=== PATIENT | female | born 1990 | race Caucasian/White ===

== ENCOUNTER 2019-06-10 05:25 | Inpatient (IN) | payer BC ==
[2019-06-10] MEDS ORDERED: Sodium Chloride 0.9% 10 ML SDV IV PRN (05:42)
[2019-06-10] MEDS ORDERED: ceFAZolin 2 GM in Premix Bag 1 BAG IV ONE (05:42)
[2019-06-10] MEDS ORDERED: Sodium Chloride 0.9% 2.5 ML Syringe FLUSH PRN (05:42)
[2019-06-10] MEDS ORDERED: Sodium Chloride 0.9% 10 ML Syringe FLUSH PRN (05:42)
[2019-06-10] MEDS: Lactated Ringers 1,000 ML IV SCH ×4 (06:04→17:39)
[2019-06-10] MEDS ORDERED: Morphine PF 10 MG/10 ML SDV ONE (07:23)
--- NOTE | 2019-06-10 07:25 | PCM.PREANE ---
Preanesthetic Assessment - Anesthesia/Transfusion/Family Hx Anesthesia History: Prior Anesthesia Without Reaction Family History of Anesthesia Reaction: No Transfusion History: No Prior Transfusion(s) Intubation History: Unknown - Review of Systems General: No Symptoms Pulmonary: No Symptoms Cardiovascular: No Symptoms Gastrointestinal: No Symptoms Neurological: No Symptoms Other: Reports: None - Physical Assessment Height: 5 ft 4 in Weight: 81.647 kg ASA Class: 2 Airway Class: Mallampati = 1 Dentition: Reports: Normal Dentition (lower retainer) Thyro-Mental Finger Breadths: 3 Mouth Opening Finger Breadths: 3 ROM/Head Extension: Full Lungs: Clear to Auscultation, Normal Respiratory Effort Cardiovascular: Regular Rate, Regular Rhythm - Lab Values: Laboratory Last Values WBC 7.16 K/uL (4.0-11.0) 06/10/19 05:56 RBC 3.78 M/uL (4.30-5.90) L 06/10/19 05:56 Hgb 11.5 g/dL (12.0-16.0) L 06/10/19 05:56 Hct 34.6 % (36.0-46.0) L 06/10/19 05:56 MCV 91.5 fL (80.0-98.0) 06/10/19 05:56 MCH 30.4 pg (27.0-32.0) 06/10/19 05:56 MCHC 33.2 g/dL (31.0-37.0) 06/10/19 05:56 RDW Std Deviation 46.2 fl (28.0-62.0) 06/10/19 05:56 RDW Coeff of Sharri 14 % (11.0-15.0) 06/10/19 05:56 Plt Count 216 K/uL (150-400) 06/10/19 05:56 MPV 9.50 fL (7.40-12.00) 06/10/19 05:56 Nucleated RBC % 0.0 /100WBC 06/10/19 05:56 Nucleated RBCs # 0 K/uL 06/10/19 05:56 Blood Type B NEGATIVE 06/10/19 05:56 Antibody Screen NEGATIVE 06/10/19 05:56 - Allergies Allergies/Adverse Reactions: Allergies Allergy/AdvReac Type Severity Reaction Status Date / Time No Known Allergies Allergy Verified 06/06/19 11:07 - Blood Blood Available: No - Anesthesia Plan Pre-Op Medication Ordered: None - Acknowledgements Anesthesia Type Planned: Spinal (general anesthesia back-up plan) Pt an Appropriate Candidate for the Planned Anesthesia: Yes Alternatives and Risks of Anesthesia Discussed w Pt/Guardian: Yes Pt/Guardian Understands and Agrees with Anesthesia Plan: Yes PreAnesthesia Questionnaire HEENT History: Reports: Other (See Below) Other HEENT History: has permanent lower dental retainer Gastrointestinal History: Reports: Other (See Below) Other Gastrointestinal History: some heartburn during [employer] History: Reports: Other OB/BYN History: hx of fx tailbone during last vaginal delivery Musculoskeletal History: Reports: Other (See Below) Other Musculoskeletal History: fracture of coccyx Endocrine/Metabolic History: Reports: Obesity/BMI 30+ Other Endocrine/Metabolic History: hypoglycemia Hematologic History: Reports: Iron Deficiency - Past Surgical History Head Surgeries/Procedures: Reports: None HEENT Surgical History: Reports: Oral Surgery Other HEENT Surgeries/Procedures: removal of wisdom teeth and gum graft Musculoskeletal Surgical History: Reports: None - SUBSTANCE USE Smoking Status *Q: Never Smoker Recreational Drug Use History: No - HOME MEDS Home Medications: Home Meds PNV95/Ferrous Fumarate/FA [ Multivitamins] 1 tab PO DAILY 09/12/14 [ History] Docusate Sodium [Colace] 100 mg PO DAILY 06/06/19 [History] Iron 65 mg PO DAILY 06/06/19 [History] - CURRENT (IN HOUSE) MEDS Current Meds: Current Medications Citric Acid/Sodium Citrate (Bicitra Solution) 30 ml PO ONETIME ONE Stop: 06/10/19 08:01 Lactated Ringer's (Ringers, Lactated) 1,000 mls @ 500 mls/hr IV BOLUS [facility]IANELA Last Admin: 06/10/19 07:04 Dose: 999 mls/hr Oxytocin/Sodium Chloride (Oxytocin 30 Unit/500 Ml-Ns) 30 unit in 500 mls @ 250 mls/hr IV TITRATE [facility]A Sodium Chloride (Saline Flush) 10 ml FLUSH ASDIRECTED PRN PRN Reason: Keep Vein Open Sodium Chloride (Saline Flush) 2.5 ml FLUSH ASDIRECTED PRN PRN Reason: Keep Vein Open Sodium Chloride (Normal Saline) 10 ml IV ASDIRECTED PRN PRN Reason: IV Use Discontinued Medications Cefazolin Sodium/Dextrose 2 gm (/ Premix) 50 mls @ 100 mls/hr IV ONETIME ONE Stop: 06/10/19 06:11
[2019-06-10] MEDS ORDERED: Octyl 2-Cyanoacrylate 1 Tube ONE (07:50)
[2019-06-10] MEDS ORDERED: ceFAZolin/Dextrose,Iso-Osmotic 2 GM/50 ML Duplex Bag IV ONE (07:52)
[2019-06-10] MEDS ORDERED: Citric Acid/Sodium Citrate Solution 30 ML Cup PO ONE (08:00)
[2019-06-10] MEDS ORDERED: Octyl 2-Cyanoacrylate 1 Tube TOP ONE (08:00)
[2019-06-10] MEDS ORDERED: Oxytocin/0.9 % Sodium Chloride 30 UNIT/500 ML BAG IV SCH (08:00)
[2019-06-10] MEDS ORDERED: ePHEDrine 50 MG/ML SDV ONE (08:05)
[2019-06-10] MEDS ORDERED: Methylergonovine 0.2 MG/1 ML Amp IM PRN (08:48)
[2019-06-10] MEDS ORDERED: Ondansetron 4 MG/2 ML SDV IVPUSH PRN ×2 (08:48→09:15)
[2019-06-10] MEDS ORDERED: Lanolin 100% Cream 7 GM Tube TOP PRN (08:48)
[2019-06-10] MEDS ORDERED: Oxytocin 10 Units/1 ML SDV IM PRN (08:48)
[2019-06-10] MEDS ORDERED: Tranexamic Acid 1,000 MG in Sodium Chloride 0.9% 100 ML IV PRN (08:48)
[2019-06-10] MEDS ORDERED: diphenhydrAMINE 50 MG/ML SDV IVPUSH PRN ×2 (08:48→09:15)
[2019-06-10] MEDS ORDERED: Misoprostol 200 MCG Tab RECTAL PRN (08:48)
[2019-06-10] MEDS ORDERED: Acetaminophen/oxyCODONE 325-5 MG Tab PO PRN ×2 (08:48→09:15)
[2019-06-10] MEDS ORDERED: Bisacodyl 10 MG Supp RECTAL PRN (08:48)
--- NOTE | 2019-06-10 08:48 | PCM.OPNOTE ---
- General Post-Op/Procedure Note Date of Surgery/Procedure: 06/10/19 Operative Procedure(s): primary low transverse Findings: LIveborn female 11/08 single nuchal cord, weight pending, normal pelvis Pre Op Diagnosis: 39 weeks, previous pelvic fracture Post-Op Diagnosis: Same Anesthesia Technique: Spinal Primary Surgeon: Britney Silva Secondary Surgeon: Osiris Rivera Anesthesia Provider: Cara Durham Pathology: placenta for disposal (no path) Fluid Replacement, Intraop: 2,700 Output, Urine Amount: 150 EBL in mLs: 500 Complications: None Known Condition: Good
[2019-06-10] MEDS ORDERED: Oxytocin/Lactated Ringers 30 UNIT/500 ML BAG IV SCH (09:00)
[2019-06-10] MEDS ORDERED: fentaNYL 100 MCG/2 ML SDV IVPUSH PRN (09:15)
[2019-06-10] MEDS ORDERED: Nalbuphine 10 MG/1 ML Vial IVPUSH PRN (09:15)
[2019-06-10] MEDS ORDERED: Naloxone 0.4 MG/ML Syringe IVPUSH PRN (09:15)
[2019-06-10] MEDS: Ketorolac 30 MG/ML SDV IVPUSH SCH ×3 (09:46→21:14)
--- NOTE | 2019-06-10 10:09 | PCM.POSTAN ---
POST ANESTHESIA ASSESSMENT - MENTAL STATUS Mental Status: Alert, Oriented - RESPIRATORY Respiratory Status: Respiratory Rate WNL, Airway Patent, O2 Saturation Stable - CARDIOVASCULAR CV Status: Pulse Rate WNL, Blood Pressure Stable - GASTROINTESTINAL GI Status: No Symptoms - PAIN Pain Score: 1 - POST OP HYDRATION Hydration Status: Adequate & Stable - OBSERVATIONS Free Text/Narrative:: No anesthesia problems
[2019-06-10] MEDS: Docusate Sodium 100 MG Cap PO SCH ×2 (10:43→21:15)
--- NOTE | 2019-06-10 13:50 | OR ---
SURGEON: Britney Silva M.D. DATE OF PROCEDURE: 06/10/2019 PREOPERATIVE DIAGNOSES: A 39-week intrauterine , prior pelvic fracture. POSTOPERATIVE DIAGNOSES: A 39-week intrauterine , prior pelvic fracture. PROCEDURE: Primary low transverse section. PRIMARY SURGEON: Britney Silva MD HIGH DENSITY PRESS OPERATOR: first marce Patten, certified. ANESTHESIA: Spinal ESTIMATED BLOOD LOSS: 500 mL. FLUIDS: 2700 mL of crystalloid. FINDINGS: Liveborn female. score of 9 and 9. Weight is pending at the time of dictation. COMPLICATIONS: None known. DISPOSITION: Mother and baby are in Recovery in good condition. BRIEF HISTORY: This is a 29-year-old female, G4, P3. She presents at 39 weeks' gestation with an estimated weight of 4000 g, having had a prior coccyx fracture with a similar sized baby. She has had smaller babies, 7 pounds and 5 pounds, without difficulty. However, anticipating this to be a similar-sized baby to the one that she had the pelvic fracture with. She desires to proceed with a primary low transverse section with risks discussed including bleeding; infection; injury to bowel, bladder, blood vessels, ureters, or other organs; risk of thromboembolic event; and risk of anesthesia. Understanding all these risks, she does desire to proceed. DESCRIPTION OF PROCEDURE: With the patient in the left tilt position, under adequate spinal analgesia, the abdomen was prepped with chlorhexidine and draped in the usual fashion for abdominal surgery. SCDs were in place. Fletcher catheter had been placed. An appropriate time-out was held. She received 2 g of Ancef IV. After documentation of adequate analgesia, a transverse curvilinear incision was made 2 cm cephalad from the pubic symphysis, carried through the subcutaneous tissue to the fascia, which was scored transversely in the midline. The fascial incision was extended laterally using curved Rivera scissors. The fascia was elevated from the underlying rectus muscle and using sharp and blunt dissection. The rectus muscles were bluntly in the midline. A finger was used to enter the peritoneal cavity and the incision was extended using sharp and blunt dissection. The Chente O retractor was placed. The visceroperitoneum over the lower uterine segment was incised to develop an adequate bladder flap. A transverse curvilinear incision was made over the lower uterine segment and a finger was used to enter the amniotic cavity, clear fluid was noted. The incision was extended with cephalad-caudad traction on the incision. The head was delivered via the uterine incision. The was bulb suctioned by nose and mouth. Nuchal cord was reduced. The infant's shoulders and body were delivered without any difficulty. The infant was dried and bulb suctioned, and after 1 minute, the cord was doubly clamped and cut. The infant was handed to the nurse in attendance at delivery. The infant was a liveborn female. score of 9 and 9. Weight is pending at the time of dictation. Cord blood was collected for cord ABGs as well as routine cord blood sampling. Pitocin was initiated after delivery of the to assist with delivery of the placenta, which was delivered by manual extraction. The uterus was cleaned with a dry laparotomy tape. The cervix was opened with ring forceps. The uterine incision was closed with a running lock suture of 0 Polysorb followed by an imbricating layer of 0 Polysorb. Posterior cul-de-sac and pericolic gutters were cleaned and irrigated. Tubes and ovaries were inspected and appeared normal. The uterine incision was carefully inspected and was completely hemostatic. The Chente O retractor was removed. The rectus muscle and peritoneum were loosely approximated in the midline using running mattress suture of 0 Polysorb. The posterior aspect of the fascia was inspected for hemostasis, and after complete hemostasis was verified, the fascia was closed with a running suture of 0 Polysorb. Subcutaneous tissue was irrigated, any areas of bleeding that were noted were cauterized. The deep subcutaneous tissue was closed with a running suture of 3-0 plain and the skin was closed with running subcuticular suture of 3-0 Monocryl followed by Dermabond. Final sponge, needle, and instrument counts were reported as correct. There were no known complications. Mother and baby are in Recovery in good condition. ANA / PALAK /[id number] MTDD
[2019-06-11] MEDS: Ketorolac 30 MG/ML SDV IVPUSH SCH ×2 (03:08→09:14)
[2019-06-11] MEDS: Docusate Sodium 100 MG Cap PO SCH (09:14)
--- NOTE | 2019-06-11 09:33 | PCM.PNPP ---
- General Info Date of Service: 06/11/19 Functional Status: Reports: Pain Controlled, Tolerating Diet, Ambulating, Urinating - Review of Systems General: Reports: No Symptoms HEENT: Reports: No Symptoms Pulmonary: Reports: No Symptoms Cardiovascular: Reports: No Symptoms Gastrointestinal: Reports: No Symptoms Genitourinary: Reports: No Symptoms Musculoskeletal: Reports: No Symptoms Skin: Reports: No Symptoms Neurological: Reports: No Symptoms Psychiatric: Reports: No Symptoms - General Info Date of Service: 06/11/19 - Patient Data Vital Signs - Most Recent: Last Vital Signs Temp 36.3 C 06/11/19 04:27 Pulse 87 06/11/19 07:00 Resp 17 06/11/19 07:00 BP 90/51 L 06/11/19 04:27 Pulse Ox 99 06/11/19 07:00 Weight - Most Recent: 81.647 kg I&O - Last 24 Hours: Intake & Output 06/10/19 06/11/19 06/11/19 22:59 06:59 14:59 Output Total 1000 1200 Balance -1000 -1200 Lab Results - Last 24 Hours: Laboratory Results - last 24 hr 06/11/19 Range/Units 05:23 Hgb 8.7 L (12.0-16.0) g/dL Hct 27.1 L (36.0-46.0) % Med Orders - Current: Current Medications Bisacodyl (Dulcolax) 10 mg RECTAL ONETIME PRN PRN Reason: Constipation Docusate Sodium (Colace) 100 mg PO BID [facility] Last Admin: 06/11/19 09:14 Dose: 100 mg Emollient Ointment (Lansinoh Hpa) 0 gm TOP ASDIRECTED PRN PRN Reason: Sore Nipples Fentanyl (Sublimaze) 50 mcg IVPUSH Q1H PRN PRN Reason: Pain (severe 7-10) Lactated Ringer's (Ringers, Lactated) 1,000 mls @ 500 mls/hr IV BOLUS [facility] Last Admin: 06/10/19 07:04 Dose: 999 mls/hr Oxytocin/Sodium Chloride (Oxytocin 30 Unit/500 Ml-Ns) 30 unit in 500 mls @ 250 mls/hr IV TITRATE [facility] Tranexamic Acid 1,000 mg/ (Sodium Chloride) 110 mls @ 660 mls/hr IV ONETIME PRN PRN Reason: Bleeding Lactated Ringer's (Ringers, Lactated) 1,000 mls @ 125 mls/hr IV ASDIRECTED [facility]ELA Last Admin: 06/10/19 17:39 Dose: 125 mls/hr Oxytocin/Lactated Ringer's (Pitocin In Lr 30 Units/500 Ml) 30 unit in 500 mls @ 999 mls/hr IV TITRATE MARIANELA; Protocol Ibuprofen (Motrin) 800 mg PO Q8H PRN PRN Reason: mild pain or fever Methylergonovine Maleate (Methergine) 0.2 mg IM ONETIME PRN PRN Reason: Excessive Vaginal Bleeding Misoprostol (Cytotec) 1,000 mcg RECTAL ONETIME PRN PRN Reason: excessive bleeding Nalbuphine HCl (Nubain) 5 mg IVPUSH ASDIRECTED PRN PRN Reason: Itching Ondansetron HCl (Zofran) 4 mg IVPUSH Q4H PRN PRN Reason: Nausea/Vomiting Last Admin: 06/10/19 13:24 Dose: 4 mg Ondansetron HCl (Zofran) 4 mg IVPUSH Q6H PRN PRN Reason: Nausea Oxycodone/Acetaminophen (Percocet 325-5 Mg) 1 tab PO Q4H PRN PRN Reason: Pain (moderate 4-6) Oxycodone/Acetaminophen (Percocet 325-5 Mg) 2 tab PO Q6H PRN PRN Reason: Pain (moderate 4-6) Oxytocin (Pitocin) 10 unit IM ASDIRECTED PRN PRN Reason: Excessive Vaginal Bleeding Sodium Chloride (Saline Flush) 10 ml FLUSH ASDIRECTED PRN PRN Reason: Keep Vein Open Sodium Chloride (Saline Flush) 2.5 ml FLUSH ASDIRECTED PRN PRN Reason: Keep Vein Open Sodium Chloride (Normal Saline) 10 ml IV ASDIRECTED PRN PRN Reason: IV Use Discontinued Medications Cefazolin Sodium/Dextrose (Ancef) Confirm Administered Dose 2 gm IV .STK-MED ONE Stop: 06/10/19 07:53 Citric Acid/Sodium Citrate (Bicitra Solution) 30 ml PO ONETIME ONE Stop: 06/10/19 08:01 Last Admin: 06/10/19 10:45 Dose: Not Given Diphenhydramine HCl (Benadryl) 25 mg IVPUSH Q4H PRN PRN Reason: Itching Stop: 06/11/19 09:15 Ephedrine Sulfate (Ephedrine Sulfate) Confirm Administered Dose 50 mg .ROUTE .STK-MED ONE Stop: 06/10/19 08:06 Cefazolin Sodium/Dextrose 2 gm (/ Premix) 50 mls @ 100 mls/hr IV ONETIME ONE Stop: 06/10/19 06:11 Last Admin: 06/10/19 10:43 Dose: Not Given Ketorolac Tromethamine (Toradol) 30 mg IVPUSH Q6H [facility]ELA Stop: 06/11/19 09:01 Last Admin: 06/11/19 09:14 Dose: 30 mg Morphine Sulfate (Duramorph Pf) Confirm Administered Dose 10 mg .ROUTE .STK-MED ONE Stop: 06/10/19 07:24 Naloxone HCl (Narcan) 0.1 mg IVPUSH ONETIME PRN PRN Reason: Respiratory Depression Stop: 06/11/19 09:15 Octyl Cyanoacrylate (Dermabond Advance) Confirm Administered Dose 1 applic .ROUTE .STK-MED ONE Stop: 06/10/19 07:51 Last Admin: 06/10/19 11:34 Dose: 1 applic Octyl Cyanoacrylate (Dermabond Advance) 1 applic TOP ONETIME ONE Stop: 06/10/19 08:01 - Interaction Disposition, : in Room with Family Interaction: Unable to Hold at this Time Infant Feeding: Breastfed Infant; Nursed Well Support Person: - Recovery Exam Fundal Tone: Firm Fundal Level: At Umbilicus Fundal Placement: Midline Lochia Amount: Small Lochia Color: Rubra/Red Perineum Description: Intact, Minimal Bruising/Swelling Episiotomy/Laceration: None Bladder Status: Indwelling Catheter in Place Urinary Elimination: Indwelling Catheter - Exam General: Alert, Oriented HEENT: Pupils Equal Neck: Supple Lungs: Clear to Auscultation, Normal Respiratory Effort GI/Abdominal Exam: Soft, Non-Tender, No Organomegaly, No Distention, No Mass Extremities: Normal Inspection, Non-Tender, No Pedal Edema Skin: Warm, Dry, Intact Wound/Incisions: Dressing Dry and Intact Neurological: No New Focal Deficit Psy/Mental Status: Alert, Normal Affect, Normal Mood - Problem List & Annotations (1) delivery delivered SNOMED Code(s): 184707958 Code(s): O82 - ENCOUNTER FOR DELIVERY WITHOUT INDICATION Status: Acute Current Visit: Yes (2) History of pelvic fracture SNOMED Code(s): 551587073 Code(s): Z87.81 - PERSONAL HISTORY OF (HEALED) TRAUMATIC FRACTURE Status: Acute Current Visit: Yes - Problem List Review Problem List Initiated/Reviewed/Updated: Yes - My Orders Last 24 Hours: My Active Orders 06/10/19 08:48 Patient Status [ADT] Routine Ambulate [RC] PER UNIT ROUTINE Communication Order [RC] PER UNIT ROUTINE Communication Order [RC] PER UNIT ROUTINE Communication Order [RC] Per Unit Routine May Shower [RC] ASDIRECTED RT Incentive Spirometry [RC] Q2HWA Vital Signs [RC] PER UNIT ROUTINE Acetaminophen/oxyCODONE [Percocet 325-5 MG] 1 tab PO Q4H PRN Lanolin [Lansinoh HPA] See Dose Instructions TOP ASDIRECTED PRN Methylergonovine [Methergine] 0.2 mg IM ONETIME PRN Ondansetron [Zofran] 4 mg IVPUSH Q4H PRN Oxytocin [Pitocin] 10 unit IM ASDIRECTED PRN Tranexamic Acid [Cyklokapron] 1,000 mg Sodium Chloride 0.9% [Normal Saline] 100 ml IV ONETIME bisacodyL [Dulcolax] 10 mg RECTAL ONETIME PRN miSOPROStoL [Cytotec] 1,000 mcg RECTAL ONETIME PRN Abdominal Binder [OM.PC] Urgent Assess Lochia [WOMSER] Per Unit Routine Assess Uterine Involution [WOMSER] Per Unit Routine Breast Pump [WOMSER] Per Unit Routine Peripheral IV Discontinue [OM.PC] Routine Sequential Compression Device [OM.PC] Per Unit Routine 06/10/19 08:49 Antiembolic Devices [RC] PER UNIT ROUTINE Intake and Output [RC] Q12H Notify Provider Intake and Out [RC] ASDIRECTED Notify Provider Vital Signs [RC] ASDIRECTED 06/10/19 09:00 Docusate Sodium [Colace] 100 mg PO BID Lactated Ringers [Ringers, Lactated] 1,000 ml IV ASDIRECTED Oxytocin/Lactated Ringers [Pitocin in LR 30 Units/500 ML] 30 unit in 500 ml IV TITRATE 06/10/19 Lunch Regular Diet [DIET] 06/11/19 14:00 Ibuprofen [Motrin] 800 mg PO Q8H PRN - Assessment Assessment:: PPD#1 after primary due to coccyx fracture with prior delivery. Pain is well controlled ambulating, would like to consider going home today to limit COVID exposure. - Plan Plan:: Continue care. Discussed conversion to oral pain medications today, ambulate and shower, if pain is well controlled and stable this evening may be discharged if she desires. Discharge instructions reviewed
[2019-06-11] MEDS: Acetaminophen/oxyCODONE 325-5 MG Tab PO PRN ×2 (10:18→14:33)
[2019-06-11 11:57] VITALS: BP 101/59; PULSE 92
--- NOTE | 2019-06-11 12:08 | PCM48HPAN ---
Post Anesthesia Note - EVALUATION WITHIN 48HRS OF ANESTHETIC Vital Signs in Normal Range: Yes Patient Participated in Evaluation: Yes Respiratory Function Stable: Yes Airway Patent: Yes Cardiovascular Function Stable: Yes Hydration Status Stable: Yes Pain Control Satisfactory: Yes Nausea and Vomiting Control Satisfactory: Yes Mental Status Recovered: Yes Vital Signs: Last Vital Signs Temp 36.5 C 06/11/19 09:30 Pulse 92 06/11/19 09:30 Resp 18 06/11/19 09:30 BP 101/59 L 06/11/19 09:30 Pulse Ox 98 06/11/19 09:30 - COMMENTS/OBSERVATIONS Free Text/Narrative:: Doing well.
--- NOTE | 2019-06-11 12:10 | PCM.SN ---
- Free Text/Narrative Note: Requested @ 03:45 for standby VAC delivery vs . Delivery via VAC without issues.
[2019-06-11] MEDS ORDERED: Ibuprofen 800 MG Tab PO PRN (14:00)
== END 2019-06-11 15:54 | disposition home or self-care (01) | DRG 540 ==
LOC: MW.OB 05:25
PROVIDERS: ADMIT Obstetrics & Gynecology; ATTEND Obstetrics & Gynecology
PROC: 10D00Z1 Extraction of Products of Conception, Low, Open Approach (ICD-10-PCS; principal; 2019-06-10)
DX: O99.824 Streptococcus B carrier state complicating childbirth (principal); O99.214 Obesity complicating childbirth; E66.9 Obesity, unspecified; Z3A.39 39 weeks gestation of pregnancy; Z37.0 Single live birth
CPT/HCPCS: 36415; 51702; 59025; 82803; 85014; 85018; 85027; 86592; 86593; 86850; 86900; 86901; A9270-GY; J0690; J1885; J2270; J2405; J7120